=== PATIENT | female | born 1965 | race Caucasian/White ===

== ENCOUNTER 2017-06-19 12:59 | Inpatient (IN) | payer OTHER, SELFPAY | END 2017-06-24 13:50 | disposition home or self-care (01) | DRG 441 | PROVIDERS: Admitting Provider Internal Medicine; Emergency Provider Emergency Medicine; PCP Internal Medicine; Visit Provider Internal Medicine | DX: K72.00 Acute and subacute hepatic failure without coma (principal); K76.7 Hepatorenal syndrome; A40.1 Sepsis due to streptococcus, group B; R65.20 Severe sepsis without septic shock; D61.818 Other pancytopenia; N17.9 Acute kidney failure, unspecified; K76.6 Portal hypertension; Z68.43 Body mass index [BMI] 50.0-59.9, adult; N39.0 Urinary tract infection, site not specified; E11.22 Type 2 diabetes mellitus with diabetic chronic kidney disease; N18.3 Chronic kidney disease, stage 3 (moderate); E66.01 Morbid (severe) obesity due to excess calories; K75.81 Nonalcoholic steatohepatitis (NASH); K74.69 Other cirrhosis of liver; I12.9 Hypertensive chronic kidney disease with stage 1 through stage 4 chronic kidney disease, or unspecified chronic kidney disease; Z79.4 Long term (current) use of insulin; B96.1 Klebsiella pneumoniae [K. pneumoniae] as the cause of diseases classified elsewhere; E86.0 Dehydration | CPT/HCPCS: 36415; 36430; 36569; 51702; 70450; 71010; 71045; 80048; 80053; 81001; 82140; 82962; 83605; 84145; 84484; 85014; 85018; 85025; 85610; 85651; 85730; 86140; 86850; 86900; 86901; 86920; 86965; 87040; 87077; 87086; 87150; 87186; 87205; 87797; 93306; 96365; 97110; 97116; 97161; 97530; 99058; 99285; P9016; P9033; P9035; Q9957 ==